=== PATIENT | male | born 1990 | race African-American/Black ===

== ENCOUNTER 2017-08-20 02:38 | Emergency (ER) | payer SELFPAY ==
[2017-08-20 03:40] LABS: ABSOLUTE BASOPHILS # (AUTO) 0.1 10^3/uL (0.0-0.2); ABSOLUTE EOSINOPHILS # (AUTO) 0.1 10^3/uL (0.0-0.6); ABSOLUTE LYMPHOCYTES (AUTO) 2.7 10^3/uL (0.5-4.7); ABSOLUTE MONOCYTES (AUTO) 0.7 10^3/uL (0.1-1.4); ABSOLUTE NEUT (AUTO) 4.4 10^3/uL (1.7-8.2); BASOPHILS % (AUTO) 0.9 % (0-2); EOSINOPHILS % (AUTO) 0.7 % (0-6); HEMATOCRIT 49.4 % (37.9-51.0); HEMOGLOBIN 17.4 g/dL (13.5-17.0); HGB HCT DIFFERENCE 2.8; LYMPHOCYTES % (AUTO) 33.7 % (13-45); MEAN CORPUSCULAR HEMOGLOBIN 30.7 pg (27.0-33.4); MEAN CORPUSCULAR HGB CONC 35.2 g/dL (32.0-36.0); MEAN CORPUSCULAR VOLUME 87 fl (80-97); RED BLOOD COUNT 5.67 10^6/uL (4.35-5.55); RED CELL DISTRIBUTION WIDTH 13.5 % (11.5-14.0); SEGMENTED NEUTROPHILS % (AUTO) 55.7 % (42-78); WHITE BLOOD COUNT 7.9 10^3/uL (4.0-10.5)
[2017-08-20 03:52] LABS: ALANINE AMINOTRANSFERASE 61 U/L (21-72); ALBUMIN 5.1 g/dL (3.5-5.0); ALKALINE PHOSPHATASE 81 U/L (38-126); ANION GAP 15 (5-19); ASPARTATE AMINO TRANSFERASE 36 U/L (17-59); BILIRUBIN,DIRECT 0.4 mg/dL (0.0-0.4); BILIRUBIN,TOTAL 1.1 mg/dL (0.2-1.3); BLOOD UREA NITROGEN 9 mg/dL (7-20); CALCIUM 10.4 mg/dL (8.4-10.2); CARBON DIOXIDE 28 mmol/L (22-30); CHLORIDE 103 mmol/L (98-107); CREATINE KINASE 123 U/L (55-170); CREATININE RESULT 0.84 mg/dL (0.52-1.25); GLUCOSE 97 mg/dL (75-110); POTASSIUM 3.8 mmol/L (3.6-5.0); SODIUM 145.5 mmol/L (137-145); TOTAL PROTEIN 8.2 g/dL (6.3-8.2)
[2017-08-20 04:03] LABS: CREATINE KINASE MB 0.36 ng/mL (<4.55)
[2017-08-20 04:06] LABS: TROPONIN I < 0.012 ng/mL
--- NOTE | 2017-08-20 06:24 | EKG REPORT ---
SEVERITY:- ABNORMAL ECG - SINUS RHYTHM CONSIDER LEFT VENTRICULAR HYPERTROPHY BORDERLINE T ABNORMALITIES, INFERIOR LEADS : Confirmed by: Veronica Damian MD 20-Aug-2017 06:23:13
--- NOTE | 2017-08-20 06:29 | ER Document Report ---
ED General - General Chief Complaint: Suicidal Ideation Stated Complaint: PSYCH EVALUATION Time Seen by Provider: 08/20/17 03:23 Notes: Patient is a 26-year-old male who presents with suicidal ideation without specific plan. Patient does however admit that he was looking at painless ways to kill himself today. He has a court date tomorrow apparently related to custody of his child and a recent separation and states that this is the trigger for his current suicidal ideation. Does have a history of PTSD and prior suicide attempts. He states at this time that he does not care whether or not he lives or dies. Nothing seems to improve or worsen his symptoms. He has not seen a doctor regarding these concerns. Denies any alcohol or drug use tonight. Denies any acute medical complaints. TRAVEL OUTSIDE OF THE [place] IN LAST 30 DAYS: No - Related Data Home Medications: Current Home Medications No Home Medications 08/20/17 [History] Past Medical History - General Information source: Patient - Social History Smoking Status: Current Every Day Smoker Frequency of alcohol use: Occasional Drug Abuse: None Lives with: Alone Family History: Reviewed & Not Pertinent Patient has suicidal ideation: Yes Patient has homicidal ideation: No Renal/ Medical History: Denies: Hx Peritoneal Dialysis Review of Systems - Review of Systems Notes: Constitutional: Negative for fever. HENT: Negative for sore throat. Eyes: Negative for visual changes. Cardiovascular: Negative for chest pain. Respiratory: Negative for shortness of breath. Gastrointestinal: Negative for abdominal pain, vomiting or diarrhea. Genitourinary: Negative for dysuria. Musculoskeletal: Negative for back pain. Skin: Negative for rash. Neurological: Negative for headaches, weakness or numbness. 10 point ROS negative except as marked above and in HPI. Physical Exam - Vital signs Vitals: Temp Pulse Resp BP Pulse Ox 98.4 F 77 16 145/98 H 99 08/20/17 02:46 08/20/17 02:46 08/20/17 02:46 08/20/17 02:46 08/20/17 02:46 Interpretation: Normal Notes: PHYSICAL EXAMINATION: GENERAL: Well-appearing, well-nourished and in no acute distress. HEAD: Atraumatic, normocephalic. EYES: Pupils equal round and reactive to light, extraocular movements intact, sclera anicteric, conjunctiva are normal. ENT: nares patent, oropharynx clear without exudates. Moist mucous membranes. NECK: Normal range of motion, supple without lymphadenopathy LUNGS: Breath sounds clear to auscultation bilaterally and equal. No wheezes rales or rhonchi. HEART: Regular rate and rhythm without murmurs ABDOMEN: Soft, nontender, normoactive bowel sounds. No guarding, no rebound. No masses appreciated. EXTREMITIES: Normal range of motion, no pitting or edema. No cyanosis. NEUROLOGICAL: No focal neurological deficits. Moves all extremities spontaneously and on command. PSYCH: Normal mood, normal affect. SKIN: Warm, Dry, normal turgor, no rashes or lesions noted. Course - Re-evaluation Re-evalutation: 08/20/17 06:26 Patient presents with acute suicidal ideation without a specific plan or intention to complete. He states that he is simply apathetic towards life at this time and does not care whether or not he lives or dies. He attributes this to an upcoming court date. He denies any acute medical complaints. Medical screening exam is unremarkable. - Vital Signs Vital signs: Temp Pulse Resp BP Pulse Ox 98.4 F 77 16 145/98 H 99 08/20/17 02:46 08/20/17 02:46 08/20/17 02:46 08/20/17 02:46 08/20/17 02:46 - Laboratory Result Diagrams: 08/20/17 03:30 08/20/17 03:30 Laboratory results interpreted by me: 08/20/17 08/20/17 03:30 03:30 RBC 5.67 H Hgb 17.4 H Sodium 145.5 H Calcium 10.4 H Albumin 5.1 H - EKG Interpretation by Me Additional EKG results interpreted by me: 08/20/17 06:27 Sinus rhythm. Rate 67. No ST elevations or depressions. QTC is 389. Discharge - Discharge Clinical Impression: Suicidal ideation Condition: Fair Disposition: PSYCH HOSP/UNIT
[2017-08-20 06:38] LABS: ADD ON TESTING BLD IN LAB ACKNOWLEDGE
[2017-08-20 08:59] LABS: APPEARANCE,URINE CLEAR; BILIRUBIN,URINE NEGATIVE (NEGATIVE); GLUCOSE, URINE NEGATIVE (NEGATIVE); KETONES,URINE NEGATIVE (NEGATIVE); LEUKOCYTE ESTERASE,URINE NEGATIVE (NEGATIVE); NITRITE,URINE NEGATIVE (NEGATIVE); PROTEIN,URINE NEGATIVE (NEGATIVE); URINE SPECIFIC GRAVITY 1.012; UROBILINOGEN,URINE NEGATIVE mg/dL (<2.0)
--- NOTE | 2017-08-20 09:09 | ER Document Report ---
Doctor's Note Notes: 08/20/17 09:09 Patient was seen this morning. Denies any suicidal ideation. States he has a court date and does not want to miss it. States that if he has any other issues he will come back. Find no compelling reason at this time to continue with involuntary hold. Please see the mental health notes for further details. Will DC at this time.
[2017-08-20 09:12] LABS: URINE BARBITURATES SCREEN NEGATIVE; URINE METHADONE SCREEN NEGATIVE; URINE OPIATES LOW NEGATIVE; URINE PHENCYCLIDINE SCREEN NEGATIVE
[2017-08-20 09:24] VITALS: BP 147/107
== END 2017-08-20 09:25 | disposition home or self-care (01) ==
LOC: ER 02:38
DX: R45.851 Suicidal ideations (principal); F32.9 Major depressive disorder, single episode, unspecified; Z63.0 Problems in relationship with spouse or partner; Z63.5 Disruption of family by separation and divorce; F17.200 Nicotine dependence, unspecified, uncomplicated
CPT/HCPCS: 36415; 80053; 80307; 81001; 82550; 82553; 84484; 85025; 93005; 93010; 99285